=== PATIENT | female | born 1950 | race African-American/Black ===

== ENCOUNTER 2016-11-30 16:10 | Inpatient (IN) | payer BC, OTHER ==
--- NOTE | ~2016-11-30 | HP ---
History And Physical [facility] [address] [place]. [address] NAME: DAVID SEO : 50 STATUS : ADM IN [facility]#: [id number] AGE: 66 ADM/REG DATE : 11/30/16 MR#: [id number] REPORT SERV DATE: 12/01/16 DICTATED BY: LEIGH DIAZ DATE: 11/30/16 REPORT STATUS : Draft TRANSCRIBED BY: MODFaiza DATE: 11/30/16 DATE OF ADMISSION: 11/30/2016 CHIEF COMPLAINT: Right-sided weakness, numbness and right-sided pain. HISTORY OF PRESENT ILLNESS: This is a 66-year-old female, patient of Dr. Ralph Castro, her primary care provider, presenting to [facility] with three days history of significant pain on the right side, right leg, right arm, and right thigh as well as numbness that is going according to the patient from her face radiating to the right head as well as the right arm, right leg, and numbness as well as difficulties with walking. She actually has chronic pain and she has been experiencing in the past right-sided leg pain with paresthesia and weakness, which according to the patient has been chronic, but now since Wednesday, got progressively worse and intermittently, and she has had difficulties walking to the point that she has been about to fall. The patient is a very poor historian and she has been complaining of pain for a long period of time for which she has been on chronic narcotics. In the past, she has been on prednisone for rheumatoid arthritis, but not anymore. She normally follows with her primary care provider, Dr. Castro, and also she says that the right hip and pain and right side pain, paresthesia, and weakness started three days ago. She has had some weakness in the past, but the pain and weakness as well as paresthesias has been getting progressively worse. She has chronic diarrhea. She has intermittent chest pain as well and headaches, intermittent blurred vision. She reports that since the symptoms onset she has an increased difficulty with ambulating. She baseline ambulates with a cane, but now it has been much more difficult to ambulate secondary to her numbness, weakness, and increasing weakness. There was no presyncopal or syncopal episodes. No chest pain or increasing shortness of breath. No fever. Denies hematemesis, melena, or hematochezia. She does have chronic diarrhea. She has an extensive abdominal surgery in the past with prior history of multiple hernia repairs and partial colectomy secondary to strangulated hernia about four years ago. The does not complain of increased urinary frequency or urgency. She just feels weak. After initial evaluation in the emergency room and CT scan of the brain that showed no acute abnormalities, Hospitalist Service has been asked for admission, further evaluation, and treatment. PAST MEDICAL HISTORY: Significant for chronic abdominal pain, rheumatoid arthritis, degenerative joint disease and osteoarthritis, history of non-ST LA, history of anemia of chronic disease with a negative EGD and camera study in the past, history of vitamin B12 deficiency, history of prior colonic resection, history of solitary kidney. Also prior history of a right-sided leg pain with paresthesia and weakness, history of chronic pain with chronic narcotics. PAST SURGICAL HISTORY: Include appendectomy, cholecystectomy, right nephrectomy, hernia repair, hysterectomy, and right total knee replacement. PAST SOCIAL HISTORY: Patient denies tobacco, alcohol, or IV drugs. ALLERGIES: SHE IS ALLERGIC TO PENICILLIN, IBUPROFEN, DICYCLOMINE, NAPROXEN, HYDROMORPHONE, ZOFRAN, AND KETORALAC. History And Physical [address] [address] NAME: DAVID SEO : 50 STATUS : ADM IN [facility]#: [id number] AGE: 66 ADM/REG DATE : 11/30/16 MR#: [id number] REPORT SERV DATE: 12/01/16 DICTATED BY: LEIGH DIAZ DATE: 11/30/16 REPORT STATUS : Draft TRANSCRIBED BY: KIEL DATE: 11/30/16 FAMILY HISTORY: Significant for diabetes, CVA, and coronary artery disease. MEDICATIONS: Listed as her home medication include aspirin, Coreg, losartan, multivitamin, Aleve, Prilosec, Roxicodone, Zocor, and Ambien. REVIEW OF SYSTEMS: A 14-point review of systems has been obtained and pertinent positive has been listed into the history of present illness. Otherwise, negative except those underlying above. PHYSICAL EXAMINATION: VITAL SIGNS: Currently, the patient is afebrile. Her blood pressure is 141/70, heart rate 110, respiratory rate 16, saturating 98% on room air. GENERAL: She is a very pleasant, well-developed, well-nourished female, in no acute distress. She is resting comfortable. HEENT: Show atraumatic, normocephalic. Pupils are equal, round, and reactive to light and accommodation. Extraocular movements are intact. No scleral icterus. No carotid bruits. No JVD. CHEST: Eval shows bilateral air entry. Clear anteroposterior. No wheezes, crackles, or rhonchi appreciated. CARDIOVASCULAR: She has regular rate and slightly tachycardic. S1, S2 positive. No S3, no S4. No murmurs, rubs, or gallops appreciated. ABDOMEN: Soft, nontender. No guarding. No rebound. No rigidity. Bowel sounds are present. EXTREMITIES: No clubbing, cyanosis, or edema. NEUROLOGIC: The patient is alert and oriented x3. She follows commands. She does not have dysarthria or aphasia. Cranial nerves are intact. Extraocular movements are intact. There is bilateral upper extremity weakness and there is some bilateral upper extremity weakness and about 4/5 in the right lower extremity partially very much restricted due to the muscle pain and tenderness of the right lower extremity. Also, some abnormal sensation reported on the right lower extremity as well as right hand; and on the left lower extremity about 4/5 deep tendon reflexes are otherwise normal, downgoing toes on bilateral plantar reflexes. The patient's gait could not be assessed due to the pain. LABORATORY DATA: Labs from today include sodium 142, potassium 3.8, chloride 111, CO2 of 23, BUN 26, creatinine 1.16, glucose is 81, total protein 7.5, albumin 2.8, globulin 4.7, bilirubin is 0.3, alkaline phosphatase 95, ALT 13, AST 4. Her troponin is less than 0.02. Her white count is 11, hemoglobin 8.1, hematocrit 24, and platelets are 304. Her INR is 1.3. Her CT of the brain without contrast does not show any acute intracranial abnormalities that could be identified. Chest x-ray PA and lateral shows stable chest x-ray with no acute abnormalities and EKG shows normal sinus rhythm. ASSESSMENT AND PLAN: This is a very pleasant 66-year-old female, presenting to [facility] with 1. Right-sided numbness, weakness, and pain with symptoms that are ongoing for three days on chronic right-sided weakness and pain. 2. Chronic narcotic dependence. History And Physical [place] [id number] [facility] [place]. [address] NAME: DAVID SEO : 50 STATUS : ADM IN PAT#: [id number] AGE: 66 ADM/REG DATE : 11/30/16 MR#: [id number] REPORT SERV DATE: 12/01/16 DICTATED BY: LEIGH DIAZ DATE: 11/30/16 REPORT STATUS : Draft TRANSCRIBED BY: MODFaiza DATE: 11/30/16 3. Chronic abdominal pain. 4. Coronary artery disease, status post prior [id number] myocardial infarction. 5. Anemia, likely of chronic disease with prior GI workup including negative EGD and negative camera studies. 6. History of solitary kidney. 7. Prior history of colonic resection. 8. Hyperlipidemia. Patient is going to be admitted to Hospitalist Service for observation. We are going to order MRI of the brain and the C-spine without contrast. We are going to place her on an aspirin, check vitamin B12, folate, TSH, free T4, and CPK level. We are going to check a lumbar x-ray as well as a pelvic x-ray. We are going to consult Neurology for further recommendation, rule her out for LA by serial cardiac enzymes, serial EKG. Check on 2D echo and carotid ultrasound. History of hypertension. We are going to continue her beta-greyson, hold her losartan and provide p.r.n. hydralazine as needed. Anemia. We are going to check all anemia studies. We are going to guaiac all her stools. History of chronic diarrhea. We are going to check her stools for C. diff, stools for cultures to look for fecal leukocytes, and ova and parasites. History of degenerative joint disease, osteoarthritis, prior history of rheumatoid arthritis. We are going to check an ESR and a CRP as well. Hyperlipidemia. We will continue her lipid-lowering agent and check a fasting lipid profile. We are going to provide reasonable pain and nausea control as well as GI and DVT prophylaxis. That has been discussed extensively with the patient. All the questions have been answered in full. Further workup and recommendation pending above. The patient is going to be followed up by Dr. Luis Carlos Stahl. NIC/KIEL Leigh Diaz M.D. / [id number]
--- NOTE | ~2016-11-30 | DS ---
Discharge Summary [facility] [address] [place]. [address] NAME: DAVID SEO : 50 STATUS : DIS IN PAT#: [id number] AGE: 66 ADM/REG DATE : 11/30/16 MR#: [id number] REPORT SERV DATE: 12/08/16 DICTATED BY: LENI NELSON DATE: 12/07/16 REPORT STATUS : Draft TRANSCRIBED BY: MODL DATE: 12/07/16 ADMISSION DATE: 11/30/2016 DISCHARGE DATE: 12/07/2016 PRINCIPAL DIAGNOSIS: Intractable pain with functional gait disorder. SECONDARY DIAGNOSES: Generalized weakness, rheumatoid arthritis, B12 deficiency anemia, depression, hypertension, and bradycardia. HISTORY OF PRESENT ILLNESS: Please see Dr. Wallace's dictation 11/30/2016. HOSPITAL COURSE: Admitted with diffuse weakness and diffuse pain in bilateral lower extremities with hyperesthesia, inability to walk. Dr. Wallace admitted her to rule out stroke, however, the patient syndrome was not in anyway compatible with any central neurological syndrome, and stroke workup was therefore canceled, however, the patient was found to have a great deal of muscle spasm, great deal of tenderness, and difficulty with range of motion particularly in her hips. X-rays of the hips and pelvis were negative. There was a concern about rheumatoid arthritis flare. Sedimentation rate was 125. The patient was put on steroids and Celebrex and baclofen as well as p.r.n. opiates. She continued to have great deal of pain but it was found that she had not taken her opiates. We counseled. We conferred with the patient, she was afraid to become addicted to the drugs, afraid of the narcotics. We explained to her the safety of use of narcotics for pain. She began doing so, and her pain was alleviated. The patient also had become very tearful, and it was clear that depression was playing a role in her syndrome. Cymbalta was initiated, and she felt much better. She was ambulating well, eating well and met the maximum benefit of hospitalization by 12/07/2016. She was discharged on a prednisone taper, Celebrex 200 mg daily. She continued her MS Contin 30 mg b.i.d. scheduled, not p.r.n. as she was taking OxyContin 30 mg b.i.d. scheduled not p.r.n. and oxycodone 15 mg q.4 p.r.n. She will continue Cozaar, carvedilol. Coreg dose was reduced due to the low heart rate, Cymbalta 30 daily, Celebrex 200 daily, aspirin 325 per day, multivitamin, Protonix, baclofen 10 b.i.d. p.r.n., hydralazine 25 b.i.d. She will follow up with Ralph Castro in one to two weeks. SIMON/KIEL Leni Nelson M.D. / [id number] Discharge Summary [address] [address] NAME: DAVID SEO : 50 STATUS : DIS IN PAT#: [id number] AGE: 66 ADM/REG DATE : 11/30/16 MR#: [id number] REPORT SERV DATE: 12/08/16 DICTATED BY: LENI NELSON DATE: 12/07/16 REPORT STATUS : Draft TRANSCRIBED BY: KIEL DATE: 12/07/16 CC: Anabel Otto M.D.
[2016-11-30 15:45] LABS: BASOPHILS 0.1 %; BASOPHILS ABSOLUTE 0.01 10/3/uL (0.0-0.16); EOSINOPHILS 1.2 %; EOSINOPHILS ABSOLUTE 0.13 10/3/uL (0.0-0.53); HEMOGLOBIN 8.1 g/dL (12.0-16.0); IMMATURE GRANULOCYTES 0.4 %; IMMATURE GRANULOCYTES ABSOLUTE 0.04 10/3/uL (0.0-0.11); LYMPHOCYTES 20.8 %; LYMPHOCYTES ABSOLUTE 2.29 10/3/uL (0.67-4.30); MEAN CORPUS HGB CONC 33.6 g/dL (32.0-36.0); MEAN CORPUSCULAR HEMOGLOB 33.1 pg (26.0-34.0); MEAN CORPUSCULAR VOLUME 98.4 fL (80-100); MEAN PLATELET VOLUME 7.5 fL (9.2-13.0); MONOCYTES 10.3 %; MONOCYTES ABSOLUTE 1.14 10/3/uL (0.21-1.20); NEUTROPHILS 67.2 %; NEUTROPHILS ABSOLUTE 7.42 10/3/uL (2.02-8.40); PLATELET COUNT 304 10/3/uL (150-400); RED CELL COUNT 2.45 10/6/uL (4.0-5.6)
[2016-11-30 15:46] LABS: HEMATOCRIT 24.1 % (36.0-48.0)
[2016-11-30 15:47] LABS: MANUAL DIFF NO %
[2016-11-30 15:52] LABS: INTERNATIONAL NORMAL RATI 1.3 UNITS (-); PARTIAL THROMBO TIME 44.3 SEC (22.5-37.2)
[2016-11-30 15:53] LABS: PROTIME (NOT ORD) 16.5 SEC (12.0-14.5)
[2016-11-30 16:03] LABS: A/G RATIO 0.6 (0.7-1.9); ALBUMIN 2.8 G/DL (3.5-5.0); ALKALINE PHOSPHATASE 95 U/L (45-117); CHLORIDE, SERUM 111 MMOL/L (96-112); CO2 (CARBON DIOXIDE) 23 MMOL/L (24-34); CREATININE 1.16 MG/DL (0.55-1.02); GFR AFRICAN AMERICAN 57 ML/MIN (>=60); GFR NON AFRICAN AMERICAN 49 ML/MIN (>=60); GLUCOSE, SERUM 81 MG/DL (60-99); POTASSIUM, SERUM 3.8 MMOL/L (3.5-5.3); SGOT(AST) 4 U/L (5-40); SGPT(ALT) 13 U/L (5-65); SODIUM, SERUM 142 MMOL/L (135-148); TOTAL BILIRUBIN 0.3 MG/DL (0-1.2); TOTAL PROTEIN 7.5 G/DL (6.0-8.5); TROPONIN I <0.02 NG/ML (<0.05)
[2016-11-30 16:04] LABS: BUN (BLOOD UREA NITROGEN) 26 MG/DL (6-23); CALCIUM, SERUM 9.3 MG/DL (8.5-10.4); GLOBULIN 4.7 G/DL (2.5-4.1)
[~2016-11-30 16:10] MED LIST: *UNABLE1; AMB10 PO; AMITIZA24 PO; ASA5GR PO; ASAB PO; ASABAYER PO; BENAZEPRIL PO; BP MED; BUSPAR15 M1 PO; BYSTOLIC PO; BYSTOLIC10 MG PO; CATPATCH1 TOP; CLINDA150 PO; COREG3 PO; FLAG500TAB PO; FLEX PO; HYDROCORT12 TOP; KAPIDEX60 MG PO; LINZESS 290 M290 MCG PO; LORTAB 5 PO; LORTAB10 PO; LOTE20 PO; LOTE40 PO; LOTENSIN HCT1 TA2 PO; MCZ25 PO; METHOC750B PO; MVI PO; NEUR100 PO; NEXIUM; NEXIUM40 PO; NORCO1 TA1 PO; NORV10 PO; P10 PO; P20 PO; PERCOCET1 TA2 PO; PERCOCET1 TA4 PO; PLAQ200B PO; PLAQUINIL; PLAQUINIL PO; PR25 PO; PREDNISONE PO; PREDNISONE2.5 MG PO; PRILOSEC10 MG PO; PRILOSEC40 MG PO; PROTONIX PO; RANITIDINE300 MG PO; ROXICODONE30 MG PO; VENTOLIN HFA INH; VESICARE PO; VESICARE5 PO; VITAMIN D31000 UNIT PO; WELLSR150 PO; ZANTAC PO; ZOCOR20 PO; [UNRECOGNIZED DRUG - REMARK] PO
[2016-11-30] MEDS ORDERED: PRILOSEC40 MG PO (17:04)
[2016-11-30] MEDS ORDERED: ROXICODONE30 MG PO (17:04)
[2016-11-30] MEDS ORDERED: ASAB PO (17:04)
[2016-11-30] MEDS ORDERED: COZAAR100 MG PO (17:05)
[2016-11-30] MEDS ORDERED: AMB10 PO (17:05)
[2016-11-30] MEDS ORDERED: COREG12 PO (17:05)
[2016-11-30] MEDS ORDERED: ZOCOR20 PO (17:05)
[2016-11-30] MEDS ORDERED: ALEVE220 MG PO (17:06)
[2016-11-30] MEDS ORDERED: MULTIVIT/MIN PO (17:07)
[2016-11-30 22:23] LABS: PHOSPHORUS, SERUM 2.4 MG/DL (2.5-4.5)
[2016-12-01 00:34] LABS: TROPONIN I <0.02 NG/ML (<0.05)
[2016-12-01 00:35] LABS: CK-MB 0.7 NG/ML; CPK 42 U/L (0-200)
[2016-12-01 06:15] LABS: BASOPHILS 0.2 %; BASOPHILS ABSOLUTE 0.02 10/3/uL (0.0-0.16); EOSINOPHILS 2.8 %; EOSINOPHILS ABSOLUTE 0.26 10/3/uL (0.0-0.53); HEMATOCRIT 24.3 % (36.0-48.0); HEMOGLOBIN 7.9 g/dL (12.0-16.0); IMMATURE GRANULOCYTES 0.3 %; IMMATURE GRANULOCYTES ABSOLUTE 0.03 10/3/uL (0.0-0.11); LYMPHOCYTES 25.5 %; MEAN CORPUS HGB CONC 32.5 g/dL (32.0-36.0); MEAN CORPUSCULAR HEMOGLOB 32.6 pg (26.0-34.0); MEAN CORPUSCULAR VOLUME 100.4 fL (80-100); MEAN PLATELET VOLUME 7.9 fL (9.2-13.0); MONOCYTES 9.7 %; MONOCYTES ABSOLUTE 0.91 10/3/uL (0.21-1.20); NEUTROPHILS 61.5 %; NEUTROPHILS ABSOLUTE 5.79 10/3/uL (2.02-8.40); PLATELET COUNT 364 10/3/uL (150-400); RBC DISTRIBUTION WIDTH 14.9 % (12.0-16.0); RED CELL COUNT 2.42 10/6/uL (4.0-5.6); WHITE BLOOD CELLS 9.4 10/3/uL (4.5-10.5)
[2016-12-01 06:19] LABS: MANUAL DIFF NO %
[2016-12-01 06:22] LABS: INTERNATIONAL NORMAL RATI 1.3 UNITS (-); PARTIAL THROMBO TIME 38.2 SEC (22.5-37.2); PROTIME (NOT ORD) 16.3 SEC (12.0-14.5)
[2016-12-01 06:43] LABS: B NATRIURETIC PEPTIDE (BNP) 11.8 PG/ML (< 100.0)
[2016-12-01 06:55] LABS: ACETAMINOPHEN LEVEL (TYLENOL) < 2.0 MCG/ML (10.0-20.0); ALBUMIN 2.6 G/DL (3.5-5.0); ALCOHOL < 10 MG/DL (0); ALKALINE PHOSPHATASE 90 U/L (45-117); CHOL/HDL RATIO(NOT ORDER) 2.6 (0-5); CHOLESTEROL 96 MG/DL (< 200); CK-MB 0.6 NG/ML; CPK 27 U/L (0-200); DIRECT BILIRUBIN < 0.1 MG/DL (0.0-0.4); FERRITIN 396 NG/ML (8-252); FOLATE 17.3 NG/ML (>5.2); FREE T4 1.21 NG/DL (0.76-1.46); HDL CHOLESTEROL 37 MG/DL (> 49); INDIRECT BILIRUBIN(NOT ORDER) 0.8 MG/DL (0.1-0.9); IRON BINDING CAPACITY 218 MCG/DL (225-410); IRON, SERUM 38 MCG/DL (35-150); LDL CHOLESTEROL 43 MG/DL (< 130); NON-HDL CHOLESTEROL 59 MG/DL (< 160); PHOSPHORUS, SERUM 2.4 MG/DL (2.5-4.5); SALICYLATE < 1.7 MG/DL (-); SGOT(AST) 4 U/L (5-40); SGPT(ALT) 13 U/L (5-65); TOTAL BILIRUBIN 0.9 MG/DL (0-1.2); TRIGLYCERIDE 80 MG/DL (< 150); TROPONIN I <0.02 NG/ML (<0.05); ULTRASENSITIVE TSH 0.704 MCIU/ML (0.358-3.740)
[2016-12-01 07:05] LABS: PROCALCITONIN 0.66 ng/mL (<0.5)
[2016-12-01 07:19] LABS: C-REACTIVE PROTEIN 84.5 MG/L (<8.0)
[2016-12-01 07:57] LABS: GLYCOHEMOGLOBIN (HbA1c) 5.2 % (4.7-6.1)
[2016-12-01 08:05] LABS: SED RATE 122 MM/HR (0-20)
[2016-12-01 13:12] LABS: CPK 31 U/L (0-200); TROPONIN I <0.02 NG/ML (<0.05)
[2016-12-02 06:09] LABS: BASOPHILS 0.1 %; BASOPHILS ABSOLUTE 0.01 10/3/uL (0.0-0.16); EOSINOPHILS 0 %; HEMATOCRIT 25.6 % (36.0-48.0); HEMOGLOBIN 8.4 g/dL (12.0-16.0); IMMATURE GRANULOCYTES 1.4 %; IMMATURE GRANULOCYTES ABSOLUTE 0.15 10/3/uL (0.0-0.11); LYMPHOCYTES 11.2 %; LYMPHOCYTES ABSOLUTE 1.17 10/3/uL (0.67-4.30); MEAN CORPUS HGB CONC 32.8 g/dL (32.0-36.0); MEAN CORPUSCULAR HEMOGLOB 32.8 pg (26.0-34.0); MEAN PLATELET VOLUME 8.1 fL (9.2-13.0); MONOCYTES 1.5 %; MONOCYTES ABSOLUTE 0.16 10/3/uL (0.21-1.20); NEUTROPHILS 85.8 %; NEUTROPHILS ABSOLUTE 8.98 10/3/uL (2.02-8.40); PLATELET COUNT 400 10/3/uL (150-400); RBC DISTRIBUTION WIDTH 14.8 % (12.0-16.0); RED CELL COUNT 2.56 10/6/uL (4.0-5.6); RETICULOCYTE COUNT 1.9 % (0.5-2.5); WHITE BLOOD CELLS 10.5 10/3/uL (4.5-10.5)
[2016-12-02 06:13] LABS: MANUAL DIFF NO %; RETICULOCYTE COUNT ABSOLUTE 49.2 10/3/uL (20.2-119.8)
[2016-12-02 06:16] LABS: BUN (BLOOD UREA NITROGEN) 17 MG/DL (6-23); CHLORIDE, SERUM 115 MMOL/L (96-112); CO2 (CARBON DIOXIDE) 20 MMOL/L (24-34); CREATININE 1.35 MG/DL (0.55-1.02); GFR AFRICAN AMERICAN 47 ML/MIN (>=60); GFR NON AFRICAN AMERICAN 41 ML/MIN (>=60); GLUCOSE, SERUM 166 MG/DL (60-99); POTASSIUM, SERUM 3.9 MMOL/L (3.5-5.3); SODIUM, SERUM 147 MMOL/L (135-148)
[2016-12-02 06:20] LABS: T PROTEIN (ELECT)(NOT OR 6.7 G/DL (6.0-8.5)
[2016-12-03 11:45] LABS: AMPHETAMINES (NOT ORD) NEG (NEG); BARBITURATES (NOT ORDERED NEG (NEG); BENZODIAZEPINES (NOT ORD) NEG (NEG); CANNABINOIDS (THC) POS (NEG); COCAINE (NOT ORDERED) NEG (NEG); OPIATES POS (NEG); PHENCYCLIDINE(PCP) NEG (NEG); TRICYCLICS NEG (NEG)
[2016-12-04 14:41] LABS: A/G 0.89 RATIO (0.9-2.10); ALB RELATIVE % 47.1 % (60.0-89.0); ALBUMIN (ELECTRO) 3.16 GM/DL (3.2-5.5); ALPHA 1 (ELECTRO) 0.33 GM/DL (0.1-0.4); ALPHA 1 RELAT % (NOT ORD) 4.9 % (1.0-4.0); ALPHA 2 (ELECTRO) 0.89 GM/DL (0.5-1.10); ALPHA 2 RELAT % 13.3 % (4.5-26.0); BETA GLOBULIN (SPE) 0.84 GM/DL (0.60-1.30); BETA RELATIVE % 12.6 % (9.0-22.0); GAMMA GLOBULIN (SPE) 1.48 G/DL (0.70-1.60); GAMMA RELAT % 22.1 % (6.0-22.0)
[2016-12-05 07:20] LABS: BUN (BLOOD UREA NITROGEN) 26 MG/DL (6-23); CALCIUM, SERUM 8.7 MG/DL (8.5-10.4); CHLORIDE, SERUM 115 MMOL/L (96-112); CO2 (CARBON DIOXIDE) 20 MMOL/L (24-34); CREATININE 1.03 MG/DL (0.55-1.02); GFR AFRICAN AMERICAN 66 ML/MIN (>=60); GFR NON AFRICAN AMERICAN 57 ML/MIN (>=60); GLUCOSE, SERUM 97 MG/DL (60-99); POTASSIUM, SERUM 4.1 MMOL/L (3.5-5.3); SODIUM, SERUM 143 MMOL/L (135-148)
[2016-12-05 07:21] LABS: PHOSPHORUS, SERUM 3.3 MG/DL (2.5-4.5)
[2016-12-07] MEDS ORDERED: LIOR10 PO (10:55)
[2016-12-07] MEDS ORDERED: CELEBREX2 PO (10:56)
[2016-12-07] MEDS ORDERED: CYANO1000T PO (10:57)
[2016-12-07] MEDS ORDERED: CYMBALTA30 PO (10:58)
[2016-12-07] MEDS ORDERED: P10 (11:00)
[2016-12-07] MEDS ORDERED: ROXICODONE15 MG PO (11:02)
[2016-12-07] MEDS ORDERED: MVI PO (11:04)
[2016-12-07] MEDS ORDERED: APRES25 PO (11:10)
== END 2016-12-07 13:17 | disposition home health service (06) | DRG 547 ==
LOC: ER 16:10 → 1SO 18:02
PROVIDERS: Emergency Medicine; Internal Medicine
DX: M06.9 Rheumatoid arthritis, unspecified (principal); D51.9 Vitamin B12 deficiency anemia, unspecified; I10 Essential (primary) hypertension; G89.29 Other chronic pain; K52.9 Noninfective gastroenteritis and colitis, unspecified; R00.1 Bradycardia, unspecified; I25.10 Atherosclerotic heart disease of native coronary artery without angina pectoris; E78.5 Hyperlipidemia, unspecified; H53.8 Other visual disturbances; Z79.82 Long term (current) use of aspirin; Z79.899 Other long term (current) drug therapy; Z79.891 Long term (current) use of opiate analgesic; I25.2 Old myocardial infarction; Z90.49 Acquired absence of other specified parts of digestive tract; Z96.651 Presence of right artificial knee joint; Z88.0 Allergy status to penicillin; Z88.6 Allergy status to analgesic agent; Z88.8 Allergy status to other drugs, medicaments and biological substances
CPT/HCPCS: 70450; 71010; 71020; 72100; 72148; 72170; 80048; 80053; 80061; 80076; 80305; 80307; 82140; 82550; 82553; 82607; 82728; 82746; 83036; 83540; 83550; 83615; 83735; 83880; 84100; 84145; 84155; 84165; 84439; 84443; 84484; 85025; 85045; 85610; 85652; 85730; 86140; 93005; 97110-GP; 97116-GP; 97161-GP; 99285; A9270-GY; G0378; J2550; J2930; J3475

== ENCOUNTER 2017-01-18 09:55 | Emergency (ER) | payer BC, OTHER ==
[~2017-01-18 09:55] MED LIST changes: +ALEVE220 MG PO; +APRES25 PO; +CELEBREX2 PO; +COREG12 PO; +COZAAR100 MG PO; +CYANO1000T PO; +CYMBALTA30 PO; +LIOR10 PO; +MULTIVIT/MIN PO; +P10; +ROXICODONE15 MG PO
[2017-01-18 10:04] LABS: BASOPHILS 0.2 %; BASOPHILS ABSOLUTE 0.02 10/3/uL (0.0-0.16); EOSINOPHILS ABSOLUTE 0.45 10/3/uL (0.0-0.53); HEMATOCRIT 25.1 % (36.0-48.0); IMMATURE GRANULOCYTES ABSOLUTE 0.11 10/3/uL (0.0-0.11); LYMPHOCYTES 28.3 %; LYMPHOCYTES ABSOLUTE 3.22 10/3/uL (0.67-4.30); MEAN CORPUS HGB CONC 31.9 g/dL (32.0-36.0); MEAN CORPUSCULAR HEMOGLOB 31.3 pg (26.0-34.0); MEAN PLATELET VOLUME 7.6 fL (9.2-13.0); MONOCYTES 6.5 %; MONOCYTES ABSOLUTE 0.74 10/3/uL (0.21-1.20); NEUTROPHILS ABSOLUTE 6.84 10/3/uL (2.02-8.40); PLATELET COUNT 341 10/3/uL (150-400); RBC DISTRIBUTION WIDTH 15.6 % (12.0-16.0); RED CELL COUNT 2.56 10/6/uL (4.0-5.6); WHITE BLOOD CELLS 11.4 10/3/uL (4.5-10.5)
[2017-01-18 10:05] LABS: ER CBC TAT 0 Hrs 06 MinsNP; MANUAL DIFF NO %
[2017-01-18 10:21] LABS: A/G RATIO 0.7 (0.7-1.9); ALBUMIN 2.9 G/DL (3.5-5.0); ALKALINE PHOSPHATASE 92 U/L (45-117); CALCIUM, SERUM 8.7 MG/DL (8.5-10.4); CHLORIDE, SERUM 108 MMOL/L (96-112); CO2 (CARBON DIOXIDE) 24 MMOL/L (24-34); CREATININE 1.21 MG/DL (0.55-1.02); GFR AFRICAN AMERICAN 54 ML/MIN (>=60); GFR NON AFRICAN AMERICAN 47 ML/MIN (>=60); GLOBULIN 4.3 G/DL (2.5-4.1); POTASSIUM, SERUM 3.7 MMOL/L (3.5-5.3); SGOT(AST) 8 U/L (5-40); SGPT(ALT) 16 U/L (5-65); SODIUM, SERUM 139 MMOL/L (135-148); TOTAL PROTEIN 7.2 G/DL (6.0-8.5)
[2017-01-18 10:22] LABS: BUN (BLOOD UREA NITROGEN) 19 MG/DL (6-23); C-REACTIVE PROTEIN 22.4 MG/L (<8.0); GLUCOSE, SERUM 117 MG/DL (60-99); TOTAL BILIRUBIN 0.2 MG/DL (0-1.2)
[2017-01-18 10:53] LABS: SED RATE 89 MM/HR (0-20)
== END 2017-01-18 11:20 | disposition home or self-care (01) ==
LOC: ER 09:55
PROVIDERS: Physician Assistant
DX: M19.90 Unspecified osteoarthritis, unspecified site (principal); I10 Essential (primary) hypertension; F32.9 Major depressive disorder, single episode, unspecified; D64.9 Anemia, unspecified; Z88.0 Allergy status to penicillin; Z88.6 Allergy status to analgesic agent; Z88.5 Allergy status to narcotic agent; Z88.8 Allergy status to other drugs, medicaments and biological substances; Z79.899 Other long term (current) drug therapy; Z79.82 Long term (current) use of aspirin; Z79.52 Long term (current) use of systemic steroids
CPT/HCPCS: 80053; 85025; 85652; 86140; 93005; 99284